=== PATIENT | female | born 1940 | race Caucasian/White ===

== ENCOUNTER 2017-03-09 17:37 | Emergency (ER) | payer MEDICARE, MEDICAID ==
[~2017-03-09] VITALS: Ht 162.6 cm; Wt 65.0 kg
[~2017-03-09 17:37] MED LIST: ENAL2.5T32 PO; METF500T4 PO
[2017-03-09] MEDS ORDERED: IBUPROFEN 200 MG TABLET PO ONE (18:30)
[2017-03-09] MEDS ORDERED: IBUPROFEN 200 MG TABLET ONE (18:38)
[2017-03-09 20:05] VITALS: BP 142/78
== END 2017-03-09 20:18 ==
LOC: ED 18:50
DX: M65.4 Radial styloid tenosynovitis [de Quervain] (principal); I10 Essential (primary) hypertension; E11.9 Type 2 diabetes mellitus without complications
CPT/HCPCS: 29125; 93005; 99284